=== PATIENT | female | born 1940 | race Caucasian/White ===

== ENCOUNTER 2021-06-10 17:37 | Inpatient (IN) | payer MEDICARE ==
[~2021-06-10] VITALS: Ht 167.6 cm; Wt 65.4 kg
[2021-06-10 20:12] LABS: BASOPHILS % (AUTO) 0.7 % (0.0-2.0); EOSINOPHILS % (AUTO) 5.2 % (1.0-6.0); HEMATOCRIT 24.5 % (36-46); LYMPHOCYTES # (AUTO) 0.8 K/uL (1.0-4.8); LYMPHOCYTES % (AUTO) 21.8 % (22.0-44.0); MEAN CORPUSCULAR HEMOGLOBIN 28.2 pg (26.0-34.0); MEAN CORPUSCULAR HGB CONC 32.8 G/dL (31.0-37.0); MEAN CORPUSCULAR VOLUME 86 fL (80-100); MONOCYTES # (AUTO) 0.3 K/uL (0.1-1.0); MONOCYTES % (AUTO) 8.2 % (2.0-9.0); NEUTROPHILS # (AUTO) 2.3 K/uL (1.8-7.7); NEUTROPHILS % (AUTO) 64.1 % (40.0-70.0); PLATELET COUNT (AUTO) 159 K/uL (150-450); RED BLOOD CELL COUNT(AUTO) 2.85 MIL/uL (4.00-5.20); RED CELL DISTRIBUTION WIDTH 14.9 % (11.5-14.5)
[2021-06-10 20:28] LABS: ALBUMIN 2.6 g/dL (3.4-5.0); BILIRUBIN,TOTAL 0.1 mg/dL (0.1-1.0); CALCIUM, TOTAL 8.5 mg/dL (8.8-10.5); CREATININE 1.06 mg/dL (0.60-1.30); TOTAL PROTEIN, SERUM 6.4 g/dL (6.4-8.2)
[2021-06-10 20:31] LABS: LACTIC ACID 0.7 mmol/L (0.4-2.0)
[2021-06-10 21:21] LABS: ABG BASE EXCESS 16.1 mmol/L (-2.0-3.0); ABG CARBOXYHEMOGLOBIN 0.3 % (0.0-1.5); ABG HCO3 37.5 mmol/L (22.0-26.0); ABG METHEMOGLOBIN 0.2 % (0.0-1.5); ABG OXYGEN CONTENT 11.7 mL/dL (15.0-23.0); ABG OXYGEN SATURATION 96.2 % (95.0-98.0); ABG OXYHEMOGLOBIN 95.7 % (94.0-100.0); ABG PCO2 88 mmHg (35-45); ABG PH 7.303 (7.35-7.450); ABG TOTAL HEMOGLOBIN 8.6 G/dL (12.0-18.0); PO2, ARTERIAL BG 90.3 mmHg (71.0-79.0); SITE, BLOOD GAS RT BRACHIAL; SOURCE, BLOOD GAS ARTERIAL; TEMPERATURE, FAHRENHEIT, BG 98.5 FAHREN (96.0-98.6)
[2021-06-10 21:22] LABS: O2 DEVICE,BLOOD GAS CANNULA (ROOM AIR)
[2021-06-10] MEDS ORDERED: SODIUM CHLORIDE 0.9% 1,000 ML IV ONE (23:15)
[2021-06-10] MEDS ORDERED: ONDANSETRON HCL 4 MG/2 ML VIAL IVP PRN (23:15)
[2021-06-10 23:22] LABS: COVID AG,FIA SOURCE NASAL SWAB
[2021-06-10] MEDS ORDERED: DEXTROSE 50%-WATER 25 GM/50 ML SYRINGE IVP PRN (23:30)
[2021-06-10] MEDS: HEPARIN SODIUM,PORCINE 5,000 UNITS/ML VIAL SQ SCH (23:41)
[2021-06-11] MEDS ORDERED: REMDESIVIR 200 MG in SODIUM CHLORIDE 0.9% 250 ML IV ONE (01:30)
[2021-06-11 03:00] VITALS: BP 120/76
[2021-06-11 06:03] LABS: BASOPHILS % (AUTO) 0.6 % (0.0-2.0); EOSINOPHILS % (AUTO) 5.3 % (1.0-6.0); HEMATOCRIT 25.1 % (36-46); HEMOGLOBIN 8.1 g/dL (12.0-16.0); LYMPHOCYTES % (AUTO) 26.8 % (22.0-44.0); MEAN CORPUSCULAR HGB CONC 32.2 G/dL (31.0-37.0); MEAN CORPUSCULAR VOLUME 87 fL (80-100); MONOCYTES # (AUTO) 0.3 K/uL (0.1-1.0); MONOCYTES % (AUTO) 9.1 % (2.0-9.0); NEUTROPHILS # (AUTO) 2.1 K/uL (1.8-7.7); NEUTROPHILS % (AUTO) 58.2 % (40.0-70.0); PLATELET COUNT (AUTO) 145 K/uL (150-450); RED CELL DISTRIBUTION WIDTH 15.2 % (11.5-14.5)
[2021-06-11 07:41] LABS: CALCIUM, TOTAL 8.4 mg/dL (8.8-10.5); CREATININE 0.9 mg/dL (0.60-1.30); POTASSIUM 4.1 mmol/L (3.5-5.1)
[2021-06-11] MEDS: FAMOTIDINE 20 MG TABLET PO SCH (09:00)
[2021-06-11] MEDS: DOCUSATE SODIUM 100 MG CAPSULE PO SCH ×2 (09:00→21:01)
[2021-06-11 09:15] VITALS: BP 141/70
[2021-06-11] MEDS: DEXAMETHASONE SOD PHOS 4 MG/ML VIAL IVP SCH (09:39)
[2021-06-11] MEDS: HEPARIN SODIUM,PORCINE 5,000 UNITS/ML VIAL SQ SCH ×2 (09:39→17:01)
[2021-06-11 10:04] LABS: C-REACTIVE PROTEIN QUANT 0.33 mg/dL (0.00-0.30)
[2021-06-11] MEDS ORDERED: DENTURE ADHESIVE 68 GM CREAM DT PRN (11:45)
[2021-06-11 11:50] VITALS: BP 140/71
[2021-06-11] MEDS: INSULIN LISPRO 100 UNITS/ML SQ PRN ×2 (12:48→17:26)
[2021-06-11 12:56] LABS: ABG BASE EXCESS 13.3 mmol/L (-2.0-3.0); ABG CARBOXYHEMOGLOBIN 0.8 % (0.0-1.5); ABG HCO3 34.9 mmol/L (22.0-26.0); ABG METHEMOGLOBIN 0.3 % (0.0-1.5); ABG OXYGEN SATURATION 96.7 % (95.0-98.0); ABG OXYHEMOGLOBIN 95.6 % (94.0-100.0); ABG PH 7.353 (7.35-7.450); ABG TOTAL HEMOGLOBIN 9.6 G/dL (12.0-18.0); PO2, ARTERIAL BG 86.5 mmHg (71.0-79.0); SOURCE, BLOOD GAS ARTERIAL; TEMPERATURE, FAHRENHEIT, BG 97.7 FAHREN (96.0-98.6)
[2021-06-11 12:59] LABS: ABG A-A DIFF O2 80.7 mmHg (10-20.0); ABG PCO2 71 mmHg (35-45); O2 DEVICE,BLOOD GAS OXYMIZER (ROOM AIR); SITE, BLOOD GAS LFT RADIAL
[2021-06-11 15:06] LABS: GLUCOMETER DEV NAME(LOC) 5N.1C; GLUCOSE,POINT OF CARE 205 MG/DL (70-110)
[2021-06-11 15:28] VITALS: BP 167/80
[2021-06-11 15:56] LABS: GLUCOSE,POINT OF CARE 118 MG/DL (70-110)
[2021-06-11 17:22] LABS: GLUCOMETER DEV NAME(LOC) 5S.2B; GLUCOSE,POINT OF CARE 190 MG/DL (70-110)
[2021-06-11 19:56] VITALS: BP 143/58
[2021-06-11] MEDS: ACETAMINOPHEN 325 MG TABLET PO PRN (21:00)
[2021-06-12 00:14] VITALS: BP 145/74
[2021-06-12] MEDS ORDERED: SODIUM CHLORIDE 0.9% 500 ML IV ONE (00:25)
[2021-06-12] MEDS: REMDESIVIR 100 MG in SODIUM CHLORIDE 0.9% 250 ML IV SCH (00:42)
[2021-06-12] MEDS: HEPARIN SODIUM,PORCINE 5,000 UNITS/ML VIAL SQ SCH ×4 (00:42→23:57)
[2021-06-12 01:19] LABS: APPEARANCE,URINE CLEAR (CLEAR); BILIRUBIN,URINE NEGATIVE (NEGATIVE); GLUCOSE, URINE (UA) 70-100 mg/dL (NEGATIVE); KETONES,URINE NEGATIVE (NEGATIVE); LEUKOCYTE ESTERASE ,URINE NEGATIVE (NEGATIVE); NITRATE,URINE NEGATIVE (NEGATIVE); OCCULT BLOOD,URINE NEGATIVE (NEGATIVE); PH,URINE 6.5 (5.0-8.0); PROTEIN,URINE TRACE mg/dL (NEGATIVE); UROBILINOGEN,URINE <=1.0 mg/dL (<=1.0)
[2021-06-12 01:25] LABS: AMPHET/METH SCREEN,URINE NEGATIVE (NEGATIVE); BARBITURATE SCREEN, URINE NEGATIVE (NEGATIVE); BENZODIAZEPINES SCREEN,URINE NEGATIVE (NEGATIVE); CANNABINOID SCREEN,URINE NEGATIVE (NEGATIVE); COCAINE SCREEN,URINE NEGATIVE (NEGATIVE); METHADONE SCREEN, URINE NEGATIVE (NEGATIVE); OPIATE SCREEN,URINE NEGATIVE (NEGATIVE)
[2021-06-12 01:29] LABS: PHENCYCLIDINE SCREEN,URINE NEGATIVE (NEGATIVE)
[2021-06-12 01:42] LABS: BACTERIA,URINE Rare /HPF (None Seen); RBC,URINE 0-2 /HPF (0-2); SQUAMOUS EPITHELIAL CELL,UR Few /LPF (None Seen); WBC,URINE 0-2 /HPF (0-5)
[2021-06-12 04:21] VITALS: BP 146/75
[2021-06-12 07:07] LABS: ALANINE AMINOTRANSFERASE 16 U/L (12-78); ALBUMIN 2.3 g/dL (3.4-5.0); ALKALINE PHOSPHATASE 70 U/L (46-116); ANION GAP 1 mmol/L (8-16); ASPARTATE AMINOTRANSFERASE 15 U/L (15-37); BILIRUBIN,TOTAL 0.1 mg/dL (0.1-1.0); CALCIUM, TOTAL 8.3 mg/dL (8.8-10.5); CARBON DIOXIDE 39 mmol/L (22-29); CHLORIDE 102 mmol/L (98-107); CREATININE 0.75 mg/dL (0.60-1.30); GLUCOSE,RANDOM 113 mg/dL (70-110); POTASSIUM 4.4 mmol/L (3.5-5.1); SODIUM SERUM 142 mmol/L (136-145); TOTAL PROTEIN, SERUM 6.2 g/dL (6.4-8.2); UREA NITROGEN, BLOOD 23 mg/dL (7-18)
[2021-06-12 07:08] LABS: GLOMERULAR FILTR. RATE CALC > 60 mL/min (>60)
[2021-06-12 07:51] VITALS: BP 143/71
[2021-06-12] MEDS: DOCUSATE SODIUM 100 MG CAPSULE PO SCH ×2 (09:00→20:22)
[2021-06-12] MEDS: ACETAMINOPHEN 325 MG TABLET PO PRN ×2 (09:18→16:38)
[2021-06-12] MEDS: DEXAMETHASONE SOD PHOS 4 MG/ML VIAL IVP SCH (09:18)
[2021-06-12] MEDS: FAMOTIDINE 20 MG TABLET PO SCH (09:18)
[2021-06-12 11:14] VITALS: BP 141/81
[2021-06-12 11:51] LABS: GLUCOMETER DEV NAME(LOC) 5S.2B; GLUCOSE,POINT OF CARE 147 MG/DL (70-110)
[2021-06-12 12:01] LABS: GLUCOMETER DEV NAME(LOC) 5N.1C; GLUCOSE,POINT OF CARE 146 MG/DL (70-110)
[2021-06-12 12:02] LABS: GLUCOMETER DEV NAME(LOC) 5N.1C; GLUCOSE,POINT OF CARE 118 MG/DL (70-110)
[2021-06-12] MEDS: INSULIN LISPRO 100 UNITS/ML SQ PRN ×3 (12:08→20:23)
[2021-06-12 16:45] VITALS: BP 148/72
[2021-06-12 17:27] LABS: GLUCOMETER DEV NAME(LOC) 5S.2B; GLUCOSE,POINT OF CARE 193 MG/DL (70-110)
[2021-06-12 20:28] VITALS: BP 152/59
[2021-06-12] MEDS ORDERED: BENZONATATE 100 MG CAPSULE PO PRN (23:30)
[2021-06-13] VITALS (7 sets, daily range): BP systolic 138–173; BP diastolic 66–95
[2021-06-13] MEDS: REMDESIVIR 100 MG in SODIUM CHLORIDE 0.9% 250 ML IV SCH (00:01)
[2021-06-13] MEDS: ACETAMINOPHEN 325 MG TABLET PO PRN (00:09)
[2021-06-13] MEDS: CloNIDine HCL 0.1 MG TABLET PO PRN (01:50)
[2021-06-13 05:31] LABS: GLUCOMETER DEV NAME(LOC) 5N.1C; GLUCOSE,POINT OF CARE 273 MG/DL (70-110)
[2021-06-13 07:48] LABS: ALANINE AMINOTRANSFERASE 17 U/L (12-78); ALBUMIN 2.5 g/dL (3.4-5.0); ALKALINE PHOSPHATASE 73 U/L (46-116); ANION GAP 3 mmol/L (8-16); ASPARTATE AMINOTRANSFERASE 19 U/L (15-37); BILIRUBIN,TOTAL 0.2 mg/dL (0.1-1.0); CALCIUM, TOTAL 8.8 mg/dL (8.8-10.5); CARBON DIOXIDE 39 mmol/L (22-29); CHLORIDE 99 mmol/L (98-107); CREATININE 0.81 mg/dL (0.60-1.30); GLUCOSE,RANDOM 113 mg/dL (70-110); SODIUM SERUM 141 mmol/L (136-145); TOTAL PROTEIN, SERUM 6.6 g/dL (6.4-8.2); UREA NITROGEN, BLOOD 23 mg/dL (7-18)
[2021-06-13 07:49] LABS: GLOMERULAR FILTR. RATE CALC > 60 mL/min (>60)
[2021-06-13] MEDS: FAMOTIDINE 20 MG TABLET PO SCH (08:22)
[2021-06-13] MEDS: HEPARIN SODIUM,PORCINE 5,000 UNITS/ML VIAL SQ SCH ×2 (08:22→17:01)
[2021-06-13] MEDS: DOCUSATE SODIUM 100 MG CAPSULE PO SCH ×2 (08:23→20:59)
[2021-06-13] MEDS: DEXAMETHASONE SOD PHOS 4 MG/ML VIAL IVP SCH (08:23)
[2021-06-13] MEDS: AmLODIPine BESYLATE 10 MG TABLET PO SCH (09:46)
[2021-06-13] MEDS: FLUTICASONE/VILANTEROL 100-25 MCG/INH INHALER [14] IH SCH (09:46)
[2021-06-13] MEDS: ASPIRIN 81 MG CHEWABLE TABLET PO SCH (09:46)
[2021-06-13] MEDS: INSULIN LISPRO 100 UNITS/ML SQ PRN ×2 (12:24→21:43)
[2021-06-13 13:11] LABS: GLUCOMETER DEV NAME(LOC) 5N.1C; GLUCOSE,POINT OF CARE 122 MG/DL (70-110)
[2021-06-13 13:11] LABS: GLUCOMETER DEV NAME(LOC) 5N.1C; GLUCOSE,POINT OF CARE 200 MG/DL (70-110)
[2021-06-13] MEDS: MetFORMIN HCL 500 MG TABLET PO SCH (17:51)
[2021-06-13] MEDS: MELATONIN 3 MG TABLET PO PRN (20:58)
[2021-06-13 21:12] LABS: GLUCOMETER DEV NAME(LOC) 5S.2B; GLUCOSE,POINT OF CARE 176 MG/DL (70-110)
[2021-06-13 23:31] LABS: GLUCOMETER DEV NAME(LOC) 5S.1B; GLUCOSE,POINT OF CARE 194 MG/DL (70-110)
[2021-06-14] MEDS: HEPARIN SODIUM,PORCINE 5,000 UNITS/ML VIAL SQ SCH ×3 (00:49→16:19)
[2021-06-14] MEDS: REMDESIVIR 100 MG in SODIUM CHLORIDE 0.9% 250 ML IV SCH (00:49)
[2021-06-14] MEDS: ACETAMINOPHEN 325 MG TABLET PO PRN ×2 (03:18→21:51)
[2021-06-14 03:33] VITALS: BP 161/76
[2021-06-14 06:45] VITALS: BP 153/76
[2021-06-14] MEDS: CloNIDine HCL 0.1 MG TABLET PO PRN (06:48)
[2021-06-14 06:59] LABS: ALANINE AMINOTRANSFERASE 22 U/L (12-78); ALBUMIN 2.7 g/dL (3.4-5.0); ALKALINE PHOSPHATASE 76 U/L (46-116); ANION GAP 4 mmol/L (8-16); ASPARTATE AMINOTRANSFERASE 25 U/L (15-37); BILIRUBIN,TOTAL 0.2 mg/dL (0.1-1.0); CARBON DIOXIDE 37 mmol/L (22-29); CHLORIDE 98 mmol/L (98-107); CREATININE 0.86 mg/dL (0.60-1.30); GLUCOSE,RANDOM 144 mg/dL (70-110); POTASSIUM 3.8 mmol/L (3.5-5.1); SODIUM SERUM 139 mmol/L (136-145); UREA NITROGEN, BLOOD 26 mg/dL (7-18)
[2021-06-14 07:15] LABS: GLUCOMETER DEV NAME(LOC) 5S.1B; GLUCOSE,POINT OF CARE 135 MG/DL (70-110)
[2021-06-14 07:17] LABS: GLOMERULAR FILTR. RATE CALC > 60 mL/min (>60)
[2021-06-14 08:36] VITALS: BP 144/77
[2021-06-14] MEDS: FAMOTIDINE 20 MG TABLET PO SCH (10:03)
[2021-06-14] MEDS: ASPIRIN 81 MG CHEWABLE TABLET PO SCH (10:03)
[2021-06-14] MEDS: AmLODIPine BESYLATE 10 MG TABLET PO SCH (10:04)
[2021-06-14] MEDS: DEXAMETHASONE SOD PHOS 4 MG/ML VIAL IVP SCH (10:04)
[2021-06-14] MEDS: FLUTICASONE/VILANTEROL 100-25 MCG/INH INHALER [14] IH SCH (10:04)
[2021-06-14] MEDS: DOCUSATE SODIUM 100 MG CAPSULE PO SCH ×2 (10:04→21:00)
[2021-06-14] MEDS: MetFORMIN HCL 500 MG TABLET PO SCH ×2 (10:45→17:44)
[2021-06-14] MEDS: INSULIN LISPRO 100 UNITS/ML SQ PRN ×2 (12:15→17:52)
[2021-06-14 13:33] VITALS: BP 126/70
[2021-06-14 16:08] VITALS: BP 134/66
[2021-06-14 20:01] LABS: GLUCOMETER DEV NAME(LOC) 5S.1B; GLUCOSE,POINT OF CARE 248 MG/DL (70-110)
[2021-06-14 20:01] LABS: GLUCOMETER DEV NAME(LOC) 5S.1B; GLUCOSE,POINT OF CARE 222 MG/DL (70-110)
[2021-06-14 20:40] VITALS: BP 145/70
[2021-06-14] MEDS: MELATONIN 3 MG TABLET PO PRN (21:51)
[2021-06-14 23:57] LABS: GLUCOMETER DEV NAME(LOC) 5S.2B; GLUCOSE,POINT OF CARE 198 MG/DL (70-110)
[2021-06-15] MEDS: REMDESIVIR 100 MG in SODIUM CHLORIDE 0.9% 250 ML IV SCH (00:40)
[2021-06-15] MEDS: HEPARIN SODIUM,PORCINE 5,000 UNITS/ML VIAL SQ SCH ×4 (00:41→23:37)
[2021-06-15 00:52] VITALS: BP 136/72
[2021-06-15 06:46] LABS: ANION GAP 5 mmol/L (8-16); CARBON DIOXIDE 33 mmol/L (22-29); CHLORIDE 102 mmol/L (98-107); CREATININE 0.86 mg/dL (0.60-1.30); GLUCOSE,RANDOM 142 mg/dL (70-110); POTASSIUM 4.6 mmol/L (3.5-5.1); SODIUM SERUM 140 mmol/L (136-145); UREA NITROGEN, BLOOD 29 mg/dL (7-18)
[2021-06-15 06:50] LABS: GLOMERULAR FILTR. RATE CALC > 60 mL/min (>60)
[2021-06-15 06:56] LABS: GLUCOMETER DEV NAME(LOC) 5S.2B; GLUCOSE,POINT OF CARE 138 MG/DL (70-110)
[2021-06-15 07:34] VITALS: BP 142/88
[2021-06-15] MEDS: DEXAMETHASONE SOD PHOS 4 MG/ML VIAL IVP SCH (08:32)
[2021-06-15] MEDS: MetFORMIN HCL 500 MG TABLET PO SCH ×2 (08:33→18:01)
[2021-06-15] MEDS: ASPIRIN 81 MG CHEWABLE TABLET PO SCH (08:33)
[2021-06-15] MEDS: AmLODIPine BESYLATE 10 MG TABLET PO SCH (08:33)
[2021-06-15] MEDS: FAMOTIDINE 20 MG TABLET PO SCH (08:33)
[2021-06-15] MEDS: DOCUSATE SODIUM 100 MG CAPSULE PO SCH ×2 (08:34→21:00)
[2021-06-15 11:01] VITALS: BP 153/82
[2021-06-15] MEDS: INSULIN LISPRO 100 UNITS/ML SQ PRN ×2 (12:30→18:12)
[2021-06-15] MEDS: FLUTICASONE/VILANTEROL 100-25 MCG/INH INHALER [14] IH SCH (12:58)
[2021-06-15] MEDS ORDERED: MELA3TAB89 PO (15:01)
[2021-06-15] MEDS ORDERED: BISA10SU11 PR (15:01)
[2021-06-15] MEDS ORDERED: ALBU8HFA IH (15:01)
[2021-06-15] MEDS ORDERED: ACET-2247 PO (15:01)
[2021-06-15] MEDS ORDERED: FURO20 PO (15:01)
[2021-06-15] MEDS ORDERED: CARV3 PO (15:01)
[2021-06-15] MEDS ORDERED: MULTIVITAMIN PO (15:01)
[2021-06-15] MEDS ORDERED: ASPI81TA87 PO (15:01)
[2021-06-15] MEDS ORDERED: FAMO20 PO (15:01)
[2021-06-15] MEDS ORDERED: TIOT185 IH (15:01)
[2021-06-15] MEDS ORDERED: NA P133E35 RC (15:01)
[2021-06-15] MEDS ORDERED: [UNRECOGNIZED DRUG - OTHER] PO (15:01)
[2021-06-15] MEDS ORDERED: IPRA3AMP24 NEB (15:01)
[2021-06-15] MEDS ORDERED: METF-1211 PO (15:01)
[2021-06-15] MEDS ORDERED: FLUT1AER IH (15:01)
[2021-06-15] MEDS ORDERED: POTA-189 PO (15:01)
[2021-06-15] MEDS ORDERED: FLUO20DR3 AD (15:01)
[2021-06-15] MEDS ORDERED: MAGN-160 PO (15:01)
[2021-06-15] MEDS ORDERED: ATOR10TA84 PO (15:01)
[2021-06-15 15:44] VITALS: BP 141/86
[2021-06-15] MEDS ORDERED: SODIUM CHLORIDE 3% 15 ML NEB SOLUTION NEB ONE (16:41)
[2021-06-15] MEDS ORDERED: MULT-660 PO (16:47)
[2021-06-15] MEDS ORDERED: AMLO-258 PO (16:47)
[2021-06-15] MEDS ORDERED: NA P266E PR (16:47)
[2021-06-15 17:42] LABS: GLUCOMETER DEV NAME(LOC) 5S.1B; GLUCOSE,POINT OF CARE 230 MG/DL (70-110)
[2021-06-15 17:42] LABS: GLUCOMETER DEV NAME(LOC) 5S.1B; GLUCOSE,POINT OF CARE 198 MG/DL (70-110)
[2021-06-15] MEDS: MELATONIN 3 MG TABLET PO PRN (20:27)
[2021-06-15 20:30] VITALS: BP 121/67
[2021-06-15 20:36] LABS: GLUCOMETER DEV NAME(LOC) 5S.1B; GLUCOSE,POINT OF CARE 163 MG/DL (70-110)
[2021-06-15 23:20] VITALS: BP 124/70
[2021-06-16 04:25] VITALS: BP 131/64
[2021-06-16 06:16] LABS: GLUCOMETER DEV NAME(LOC) 5S.1B; GLUCOSE,POINT OF CARE 130 MG/DL (70-110)
[2021-06-16] MEDS: ACETAMINOPHEN 325 MG TABLET PO PRN (06:57)
[2021-06-16 08:00] VITALS: BP 157/70
[2021-06-16] MEDS: HEPARIN SODIUM,PORCINE 5,000 UNITS/ML VIAL SQ SCH (08:22)
[2021-06-16] MEDS: MetFORMIN HCL 500 MG TABLET PO SCH (08:22)
[2021-06-16] MEDS: FAMOTIDINE 20 MG TABLET PO SCH (08:23)
[2021-06-16] MEDS: ASPIRIN 81 MG CHEWABLE TABLET PO SCH (08:23)
[2021-06-16] MEDS: AmLODIPine BESYLATE 10 MG TABLET PO SCH (08:23)
[2021-06-16] MEDS: DEXAMETHASONE SOD PHOS 4 MG/ML VIAL IVP SCH (08:23)
[2021-06-16] MEDS: DOCUSATE SODIUM 100 MG CAPSULE PO SCH (08:23)
[2021-06-16] MEDS: FLUTICASONE/VILANTEROL 100-25 MCG/INH INHALER [14] IH SCH (08:26)
[2021-06-16 11:12] VITALS: BP 147/72
[2021-06-16] MEDS: INSULIN LISPRO 100 UNITS/ML SQ PRN (11:40)
[2021-06-16 20:26] LABS: GLUCOMETER DEV NAME(LOC) 5S.1B; GLUCOSE,POINT OF CARE 169 MG/DL (70-110)
== END 2021-06-16 15:00 | disposition home health service (06) | DRG 177 ==
LOC: EMS 17:37 → ICU 06-11 00:37 → 5N 06-11 08:40
PROVIDERS: ADMIT Internal Medicine; ATTEND Internal Medicine
PROC: XW033E5 Introduction of Remdesivir Anti-infective into Peripheral Vein, Percutaneous Approach, New Technology Group 5 (ICD-10-PCS; principal; 2021-06-11)
PROC: 5A09357 Assistance with Respiratory Ventilation, Less than 24 Consecutive Hours, Continuous Positive Airway Pressure (ICD-10-PCS; 2021-06-11)
DX: U07.1 COVID-19 (principal); G93.41 Metabolic encephalopathy; J12.82 Pneumonia due to coronavirus disease 2019; J80 Acute respiratory distress syndrome; J90 Pleural effusion, not elsewhere classified; F03.90 Unspecified dementia, unspecified severity, without behavioral disturbance, psychotic disturbance, mood disturbance, and anxiety; D64.9 Anemia, unspecified; E11.9 Type 2 diabetes mellitus without complications; I10 Essential (primary) hypertension; J43.2 Centrilobular emphysema; Z82.49 Family history of ischemic heart disease and other diseases of the circulatory system; Z87.891 Personal history of nicotine dependence
CPT/HCPCS: 36600; 70450; 71045; 71250; 80048; 80053; 81001; 81003; 82805; 82962; 83605; 84484; 85025; 85379; 85730; 86140; 87040; 87081; 92610; 93005; 94660; 97116; 97163; 97530; 99285; G0238; J1100; J1644; J7030; J7040; J7050; Q9967; 36415-L1; 36415-TC